=== PATIENT | male | born 1945 | race Caucasian/White ===

== ENCOUNTER → 2023-02-05 | Outpatient (CLI) | payer OTHER, SELFPAY ==
--- NOTE | 2023-02-05 09:09 | ECHOD_ITS ---
Reason For Study: HEART CONDITION Procedure This was a 2D Doppler, Color Flow transthoracic echocardiogram. The study was technically difficult. Exam performed in department. Left Ventricle Normal LV size. The estimated ejection fraction is 60 %. Diastolic function is indeterminate. The left ventricular function is grossly normal. Right Ventricle Normal RV size. Normal systolic function. Atria The left atrium is moderately enlarged. The right atrium is mildly enlarged. Mitral Valve Mild diffuse mitral valve thickening. Mild mitral annular calcification. There is no mitral valve stenosis. Trivial mitral valve insufficiency. Tricuspid Valve Trivial tricuspid valve insufficiency. Pulmonary artery systolic pressure is 39 mmHg. Aortic Valve Moderate diffuse aortic valve calcification. Mild aortic stenosis. Mild (1+) aortic valve insufficiency. Pulmonic Valve The pulmonic valve is not well visualized. Great Vessels Normal aortic root. Normal inferior vena cava. Pericardium/Pleural No pericardial effusion. MMode/2D Measurements & Calculations LVIDd: 4.7 cm IVSd: 1.2 cm LVOT diam: 2.0 cm LVIDs: 2.9 cm LVPWd: 1.4 cm LVOT area: 3.2 cm2 RVDd: 3.1 cm FS: 39.0 % Ao root diam: 3.4 cm LAV(MOD-bp): 67.1 ml LVAd ap4: 27.5 cm2 LAV(MOD-bp) Indexed: 29.9 ml/m2 LVLd ap4: 7.6 cm LAV(MOD-sp2): 57.2 ml EDV(MOD-sp4): 85.0 ml LAV(MOD-sp4): 69.2 ml EDV(sp4-el): 84.2 ml LVAs ap4: 14.3 cm2 LVLs ap4: 6.6 cm ESV(MOD-sp4): 30.8 ml ESV(sp4-el): 26.2 ml EF(MOD-sp4): 63.7 % EF(sp4-el): 68.8 % LVAd ap2: 21.1 cm2 SV(MOD-sp4): 54.2 ml SV(MOD-sp2): 37.5 ml LVLd ap2: 6.9 cm EDV(MOD-sp2): 56.5 ml EDV(sp2-el): 54.3 ml LVAs ap2: 10.3 cm2 LVLs ap2: 5.7 cm ESV(MOD-sp2): 19.0 ml ESV(sp2-el): 16.0 ml EF(MOD-sp2): 66.3 % SV(sp4-el): 57.9 ml LA A4 area: 23.7 cm2 RA A4 area: 17.7 cm2 Time Measurements MV dec time: 0.20 sec Doppler Measurements & Calculations MV E max mikal: 90.7 cm/sec Lat Peak E' Mikal: 7.0 cm/sec Med Peak E' Mikal: 6.9 cm/sec MV A max mikal: 96.0 cm/sec E/E' lat: 12.9 E/E' med: 13.2 MV E/A: 0.94 MV V2 max: 95.2 cm/sec MV dec slope: 458.0 cm/sec2 Ao V2 max: 275.4 cm/sec MV max P.6 mmHg Ao max P.3 mmHg MV V2 mean: 57.4 cm/sec Ao V2 mean: 201.7 cm/sec MV mean P.5 mmHg Ao mean P.6 mmHg MV V2 VTI: 40.2 cm Ao V2 VTI: 68.4 cm MVA(VTI): 2.3 cm2 AV (velocity ratio): 0.42 MARITZA(I,D): 1.4 cm2 MARITZA(V,D): 1.3 cm2 AI max mikal: 418.5 cm/sec LV V1 max: 115.4 cm/sec MR max mikal: 530.3 cm/sec AI max P.2 mmHg LV V1 max P.3 mmHg MR max P.5 mmHg AI dec slope: 231.6 cm/sec2 LV V1 mean P.0 mmHg AI P1/2t: 529.3 msec LV V1 mean: 82.1 cm/sec LV V1 VTI: 29.0 cm SV(LVOT): 92.8 ml PA V2 max: 114.3 cm/sec TR max mikal: 291.9 cm/sec TR max P.1 mmHg ECHO/Echo Complete Interpretation Summary The estimated ejection fraction is 60 %. Mild mitral annular calcification. Mild aortic stenosis. Mild (1+) aortic valve insufficiency. The left atrium is moderately enlarged. The right atrium is mildly enlarged. Pulmonary artery systolic pressure is 39 mmHg. Ordering Physician: MALORIE TREADWELL Referring Physician: MALORIE TREADWELL Performed By: Priya Welch RDCS, RVT
== END | disposition home or self-care (01) ==
DX: I51.9 Heart disease, unspecified (principal)
CPT/HCPCS: 93306